=== PATIENT | male | born 1960 | race Caucasian/White ===

== ENCOUNTER 2016-08-03 08:41 | Emergency (ER) | payer OTHER ==
[~2016-08-03] VITALS: Ht 160 cm; Wt 57.0 kg
[2016-08-03 09:02] VITALS: Ht 160 cm; Wt 57.0 kg
[2016-08-03] MEDS ORDERED: KETOROLAC 60 MG INJ IM STA (09:17)
[2016-08-03 09:39] LABS: ADD UMIC NO; URINE BILIRUBIN (Dip) NEGATIVE (NEGATIVE); URINE BLOOD (Dip) NEGATIVE (NEGATIVE); URINE COLOR LT. YELLOW (YELLOW); URINE GLUCOSE (Dip) >=1000 % (NEGATIVE); URINE KETONES (Dip) 15 (NEGATIVE); URINE LEUKOCYTE ESTERASE (Dip) NEGATIVE (NEGATIVE); URINE NITRITE (Dip) NEGATIVE (NEGATIVE); URINE TOTAL PROTEIN (Dip) NEGATIVE (NEGATIVE); URINE UROBILINOGEN (Dip) 0.2 E.U./dL (0.1-1.0)
--- NOTE | 2016-08-03 10:24 | ERD ---
ER Documentation Chief Complaint Date/Time DATE: 08/03/16 TIME: 10:22 Chief Complaint RT LOWER BACK/FLANK PAIN RADIATING TO SIDE X2-3 WEEKS. WORSE TODAY. HPI 56-year-old male complaining of right flank pain 4 weeks. Pain was much worse for the last 2 weeks. Pain is constant, sharp and pulsing, radiating to the right pelvis. He could not sleep at night because of pain. He was seen at [facility] 2 weeks ago for the same pain, it was given ibuprofen and muscle relaxant. Patient stated the medication had not helped. History of diabetes, is taking Metformin 1000 mg daily. Denies fever or chills. Denies dysuria. Denies trauma or any other injuries. ROS All systems reviewed and are negative except as per history of present illness. Medications Home Meds Active Scripts Hydrocodone/Acetaminophen ([place] 5-325 Tablet) 1 Each Tablet, 1 TAB PO Q6H Y for SEVERE PAIN LEVEL 7-10, #7 TAB Prov:JACOB LIANG. EDUCATION DIAGNOSTICIAN 08/03/16 Ibuprofen* (Motrin*) 800 Mg Tab, 800 MG PO Q8 Y for PAIN AND OR ELEVATED TEMP, # 30 TAB Prov:JACOB LIANG. EDUCATION DIAGNOSTICIAN 08/03/16 Allergies Allergies: Coded Allergies: No Known Allergy (Unverified , 08/03/16) PMhx/Soc Medical and Surgical Hx: pt denies Medical Hx, pt denies Surgical Hx Hx Alcohol Use: No Hx Substance Use: No Hx Tobacco Use: No Smoking Status: Never smoker Physical Exam Vitals Vital Signs Date Time Temp Pulse Resp B/P Pulse Ox O2 Delivery O2 Flow Rate FiO2 08/03/16 09:02 98.4 98 20 142/95 98 Physical Exam General impression: Well-developed, well-nourished. Alert, oriented, in no acute distress Head: Normocephalic, atraumatic. Eyes: PERRL, EOM normal. Sclerae are normal. Conjunctiva not injected. Neck: Supple, nontender. No lymphadenopathy. No nuchal rigidity. Respiration: Normal respiratory effort. Lungs clear to auscultate bilaterally. No wheezes, rales or rhonchi. Cardiovascular: Regular rate and rhythm. No murmurs or extra heart sounds. Abdomen: Abdomen normal to inspection. Right flank and right pelvis tender. No masses or organomegaly. Bowel sounds normal. Back: Normal to inspection. No midline spine tenderness. Mild right CVA tenderness. Extremities: Extremities normal to inspection, nontender. ROM normal. Neuro: Mental status normal, speech normal. CLERICAL AND OFFICE SUPPORT WORKERS grossly intact. Skin: Normal turgor. No rash or lesions. Psych: Normal mood and affect. Result Diagram: 08/03/16 1030 08/03/16 1030 Results 24 hrs Laboratory Tests Test 08/03/16 09:24 08/03/16 10:30 Urine Color LT. YELLOW Urine Clarity CLEAR Urine pH 6.5 Urine Specific [place] 1.010 Urine Ketones 15 Urine Nitrite NEGATIVE Urine Bilirubin NEGATIVE Urine Urobilinogen 0.2 E.U./dL Urine Leukocyte Esterase NEGATIVE Urine Hemoglobin NEGATIVE Urine Glucose >=1000% Urine Total Protein NEGATIVE White Blood Count 5.410^3/ul Red Blood Count 5.5810^6/ul Hemoglobin 17.1g/dl Hematocrit 47.5% Mean Corpuscular Volume 85.1fl Mean Corpuscular Hemoglobin 30.6pg Mean Corpuscular Hemoglobin Concent 36.0g/dl Red Cell Distribution Width 11.1% Platelet Count 78273^3/UL Mean Platelet Volume 10.5fl Neutrophils % 60.4% Lymphocytes % 28.5% Monocytes % 8.0% Eosinophils % 2.2% Basophils % 0.7% Nucleated Red Blood Cells % 0.0/100WBC Neutrophils # 3.210^3/ul Lymphocytes # 1.510^3/ul Monocytes # 0.410^3/ul Eosinophils # 0.110^3/ul Basophils # 0.010^3/ul Nucleated Red Blood Cells # 0.010^3/ul Sodium Level 133mmol/L Potassium Level 4.0mmol/L Chloride Level 100mmol/L Carbon Dioxide Level 27mmol/L Anion Gap 10 Blood Urea Nitrogen 16mg/dl Creatinine 0.61mg/dl Glucose Level 310mg/dl Calcium Level 9.1mg/dl Total Bilirubin 0.6mg/dl Direct Bilirubin 0.00mg/dl Indirect Bilirubin 0.6mg/dl Aspartate Amino Transf (AST/SGOT) 20IU/L Alanine Aminotransferase (ALT/SGPT) 31IU/L Alkaline Phosphatase 103IU/L Total Protein 7.6g/dl Albumin 4.4g/dl Globulin 3.20g/dl Albumin/Globulin Ratio 1.37 Lipase 57U/L Current Medications Medications (Trade) Dose Ordered Sig/Marcelino Route PRN Reason Start Time Stop Time Status Last Admin Dose Admin Ketorolac Tromethamine (Toradol) 60 mg ONCE STAT IM 08/03/16 09:17 08/03/16 09:19 DC 08/03/16 09:31 PROCEDURE: US Retroperitoneum. CLINICAL INDICATION: Right flank pain. TECHNIQUE: Sonographic evaluation of the kidneys and bladder was performed using a curved array transducer. COMPARISON: None. FINDINGS: The right kidney measures 11.3 cm and the left kidney measures 11.6 cm in length. There is a small cyst identified in the right inferior pole measuring up to 8 mm. There is no hydronephrosis or nephrolithiasis. No focal renal mass is demonstrated. Partially distended urinary bladder is grossly unremarkable. There is enlarged prostate gland measuring up to 4 cm. IMPRESSION: No sonographic evidence of hydronephrosis, nephrolithiasis, or focal renal mass. Prostatomegaly. RPTAT: EE .Dilip Simmons MD, MD Date Time Electronically viewed and signed by .Dilip Simmons MD, on 08/03/2016 10:35 .C/ CC: JACOB LIANG NP PROCEDURE: CT abdomen and pelvis without contrast. CLINICAL INDICATION: Right flank pain TECHNIQUE: CT scan of the abdomen and pelvis without contrast was performed and is reconstructed at 2.5 mm contiguous axial intervals from the dome of the diaphragm to the inferior pubic rami.. The patient was scanned without intravenous contrast. Sagittal and coronal reformatted images were obtained from the axial source images. The calculated radiation dose measures 300 mGy centimeters. The CTDI measures 25 mGy. COMPARISON: None. FINDINGS: The lung bases are clear of any infiltrate or nodule. No effusion is seen. The liver is of normal size, contour and attenuation with no mass or ductal dilatation. No gallstones are visualized. No splenic, adrenal or pancreatic abnormalities present. Kidneys are of normal size and contour. No hydronephrosis or solid masses seen. 2 mm nonobstructing stone is seen in the upper pole of the right kidney. 5 mm cyst is seen in the right kidney. Ureters are of normal course and caliber with no stone. No bladder mass or stone is present. Prostate and seminal vesicles are normal. There is no aneurysm. No adenopathy is present. No bowel mass or obstruction is present. The appendix is normal. No phlegmon , ascites or pneumoperitoneum is visualized. The osseous structures are intact. IMPRESSION: No evidence of obstructive uropathy, diverticulitis or appendicitis. Tiny right renal calculus. Small right renal cyst. .Jaswinder Saldaña MD, MD Date Time Electronically viewed and signed by .Jaswinder Saldaña MD, on 08/03/2016 13: 27 .A/ CC: JACOB LIANG EDUCATION DIAGNOSTICIAN Procedures/MDM 56-year-old male presented ED was right flank pain and right pelvic pain. UA is negative for leukocyte, negative nitrite, negative hemoglobin. Greater than 1000% glucose is seen on UA. CBC, CMP, lipase are unremarkable except for blood glucose of 310. Renal ultrasound showed no hydronephrosis or focal renal mass. Prostatomegaly is seen on ultrasound. CT abdomen pelvis without IV contrast was obtained. CT showed 2 mm nonobstructing stone in the upper pole of the right kidney, a 5 mm cyst is also seen in the right kidney. CT otherwise normal. Patient was given Toradol in the ED. Patient reports pain slightly better after Toradol. Patient was informed of imaging and lab test results. I doubt pyelonephritis, acute appendicitis, cholecystitis, or other acute abdomen. Patient appears well, stable for discharge and outpatient management. Medical decision making shared with patient and family. Education provided to patient and family. Patient and family expressed understanding of the plan. Medications on discharge: Ibuprofen, Ashley. Follow-up: Primary care provider in 2-3 days or return to ED if worse. The case was reviewed and discussed with Dr. Kaplan, who agrees with the plan of care including labs, treatment, and advanced imaging as appropriate. Departure Diagnosis: Primary Impression: Kidney stone on right side Condition: Good JACOB LIANG NP Aug 03, 2016 10:24
--- NOTE | 2016-08-03 10:31 | RADRPT ---
PROCEDURE: US Retroperitoneum. CLINICAL INDICATION: Right flank pain. TECHNIQUE: Sonographic evaluation of the kidneys and bladder was performed using a curved array tr ansducer. COMPARISON: None. FINDINGS: The right kidney measures 11.3 cm and the left kidney measures 11.6 cm in length. There is a small cyst identified in the right inferior pole measuring up to 8 mm. There is no hydronephrosis or nephrolithiasis. No focal renal mass is demonstrated. Partially distended urinary bladder is grossly unremarkable. There is enlarged prostate gland measu ring up to 4 cm. IMPRESSION: No sonographic evidence of hydronephrosis, nephrolithiasis, or focal renal mass. Prostatomegaly. RPTAT: EE .Dilip Simmons MD, MD Date Time Electronically viewed and signed by .Dilip Simmons MD, on 08/03/2016 10:35 .C/
[2016-08-03 10:45] LABS: ADD SCAN DIFF NO
[2016-08-03 10:49] LABS: BASOPHILS % 0.7 % (0.0-2.0); EOSINOPHILS # 0.1 10^3/ul (0.0-0.5); EOSINOPHILS % 2.2 % (0.0-7.0); HEMATOCRIT 47.5 % (42.0-52.0); HEMOGLOBIN 17.1 g/dl (14.0-18.0); LYMPHOCYTES # 1.5 10^3/ul (0.8-2.9); LYMPHOCYTES % 28.5 % (15.0-51.0); MEAN CORPUSCULAR HEMOGLOBIN 30.6 pg (29.0-33.0); MEAN CORPUSCULAR VOLUME 85.1 fl (82.0-101.0); MEAN PLATELET VOLUME 10.5 fl (7.4-10.4); MONOCYTE # 0.4 10^3/ul (0.3-0.9); NEUTROPHIL # 3.2 10^3/ul (1.6-7.5); NEUTROPHILS % 60.4 % (39.0-77.0); PLATELET COUNT 193 10^3/UL (140-415); RED BLOOD COUNT 5.58 10^6/ul (4.70-6.10); RED CELL DISTRIBUTION WIDTH 11.1 % (11.5-14.5); WHITE BLOOD COUNT 5.4 10^3/ul (4.8-10.8)
[2016-08-03 11:00] LABS: ALBUMIN 4.4 g/dl (3.3-4.9); ALBUMIN/GLOBULIN RATIO 1.37; BILIRUBIN,INDIRECT 0.6 mg/dl (0-1.1); BILIRUBIN,TOTAL 0.6 mg/dl (0.2-1.3); CALCIUM 9.1 mg/dl (8.4-10.2); CREATININE 0.61 mg/dl (0.61-1.24); TOTAL PROTEIN 7.6 g/dl (6.1-8.1)
--- NOTE | 2016-08-03 13:27 | RADRPT ---
PROCEDURE: CT abdomen and pelvis without contrast. CLINICAL INDICATION: Right flank pain TECHNIQUE: CT scan of the abdomen and pelvis without contrast was performed and is reconstructed a t 2.5 mm contiguous axial intervals from the dome of the diaphragm to the inferior pubic rami.. The patient was scanned without intravenous contrast. Sagittal and coronal reformatted images were obt ained from the axial source images. The calculated radiation dose measures 300 mGy centimeters. The CTDI measures 25 mGy. COMPARISON: None. FINDINGS: The lung bases are clear of any infiltrate or nodule. No effusion is seen. The liver is of normal size, contour and attenuation with no mass or ductal dilatation. No gallston es are visualized. No splenic, adrenal or pancreatic abnormalities present. Kidneys are of normal size and contour. No hydronephrosis or solid masses seen. 2 mm nonobstructin g stone is seen in the upper pole of the right kidney. 5 mm cyst is seen in the right kidney. Uret ers are of normal course and caliber with no stone. No bladder mass or stone is present. Prostate a nd seminal vesicles are normal. There is no aneurysm. No adenopathy is present. No bowel mass or obstruction is present. The appendix is normal. No phlegmon, ascites or pneumop eritoneum is visualized. The osseous structures are intact. IMPRESSION: No evidence of obstructive uropathy, diverticulitis or appendicitis. Tiny right renal calculus. Small right renal cyst. .Jaswinder Saldaña MD, Date Time Electronically viewed and signed by .Jaswinder Saldaña MD, MD on 08/03/2016 13:27 .A/
[2016-08-03] MEDS ORDERED: IBUP800T25 PO (14:17)
[2016-08-03] MEDS ORDERED: HYDR-906 PO (14:17)
== END 2016-08-03 14:26 | disposition home or self-care (01) ==
LOC: FTE 08:41
DX: N20.0 Calculus of kidney (principal)
CPT/HCPCS: 36415; 74176; 76775; 80053; 81003; 83690; 85025; 96372; 99285; J1885

== ENCOUNTER 2016-10-09 11:12 | Emergency (ER) | payer OTHER ==
[~2016-10-09] VITALS: Ht 152.4 cm; Wt 58.0 kg
[~2016-10-09 11:12] MED LIST: HYDR-906 PO; IBUP800T25 PO
[2016-10-09 11:15] VITALS: Ht 152.4 cm; Wt 58.0 kg
[2016-10-09] MEDS ORDERED: KETOROLAC 30 MG INJ IM STA (12:22)
[2016-10-09] MEDS ORDERED: TRAM50TA2 PO (12:23)
[2016-10-09] MEDS ORDERED: NAPR-260 PO (12:25)
[2016-10-09 12:33] VITALS: BP 116/75; PULSE 89; RESP 19; TEMP 98.1
--- NOTE | 2016-10-09 12:39 | ERD ---
ER Documentation Chief Complaint Date/Time DATE: 10/09/16 TIME: 12:35 Chief Complaint Complains of back pain x 3 days HPI Patient is a 56-year-old male with a past medical history of diabetes who presents to the ED with back pain 2 months. He states that his pain comes and goes. He states that he was here 2 months ago and was diagnosed with a kidney stone. He states his pain is gotten worse in the last couple of days. He did not states that it radiates slightly to his right pelvis. He states that he has difficulty sleeping at night. He has taken ibuprofen but has not taken any recent pain medications for his symptoms. He states that he went to his primary care and has a referral to see the urologist in 1 month. He denies fever or chills. Denies dysuria. Denies trauma or injuries. Denies leg pain. Denies chest pain or cough or shortness of breath. Denies headache or dizziness. Denies polyuria, polyphagia, polydipsia. Patient states that he would like to do have a surgery here in the ED. States that he does not want to wait until his urology appointment. ROS All systems reviewed and are negative except as per history of present illness. Medications Home Meds Active Scripts Naproxen* (Naprosyn*) 500 Mg Tablet, 500 MG PO BID Y for PAIN AND/OR INFLAMMATION, #30 TAB Prov:MO SMITH PA-C 10/09/16 Tramadol HCl (Tramadol HCl) 50 Mg Tablet, 50 MG PO Q6 Y for PAIN, #20 TAB Prov:MO SMITH PA-C 10/09/16 Hydrocodone/Acetaminophen ([place] 5-325 Tablet) 1 Each Tablet, 1 TAB PO Q6H Y for SEVERE PAIN LEVEL 7-10, #7 TAB Prov:JACOB LIANG. SPECIAL EDUCATION RESOURCE TEACHER 08/03/16 Ibuprofen* (Motrin*) 800 Mg Tab, 800 MG PO Q8 Y for PAIN AND OR ELEVATED TEMP, # 30 TAB Prov:JACOB LIANG. SPECIAL EDUCATION RESOURCE TEACHER 08/03/16 Allergies Allergies: Coded Allergies: No Known Allergy (Unverified , 08/03/16) PMhx/Soc Medical and Surgical Hx: pt denies Surgical Hx History of Surgery: No Anesthesia Reaction: No Hx Neurological Disorder: No Hx Respiratory Disorders: No Hx Cardiac Disorders: No Hx Psychiatric Problems: No Hx Miscellaneous Medical Probl: Yes (DM) Hx Alcohol Use: No Hx Substance Use: No Hx Tobacco Use: No Smoking Status: Never smoker FmHx Family History: No coronary disease, No diabetes, No other Physical Exam Vitals Vital Signs Date Time Temp Pulse Resp B/P Pulse Ox O2 Delivery O2 Flow Rate FiO2 10/09/16 12:33 98.1 89 19 116/75 100 Room Air 10/09/16 11:15 97.0 103 20 114/78 99 Physical Exam GENERAL: Well-developed, well-nourished male. Appears in no acute distress. HEAD: Normocephalic, atraumatic. EYES: Pupils are equally reactive bilaterally. EOMs grossly intact. No conjunctival erythema. ENT: Moist mucous membranes. No uvula deviation. No kissing tonsils. No exudates. NECK: Supple. No lymphadenopathy or thyromegaly. No meningismus. negative kernig. negative brudinski. LUNG: Clear to auscultation bilaterally. No rhonchi, wheezing, rales or coarse breath sounds. HEART: Regular rate and rhythm. No murmurs, rubs or gallops. ABDOMEN: No scars, ecchymosis or rashes noted. Soft, nontender, and nondistended. Positive bowel sounds in all four quadrants. No rebound tenderness , no guarding. (-) McBurneys point tenderness. Slight tenderness to the right CVA. Negative straight leg test. BACK: No midline tenderness. Extremities: Equal pulses bilaterally. No peripheral clubbing, cyanosis or edema. No unilateral leg swelling. NEUROLOGIC: Alert and oriented. Moving all four extremities. 5/5 strength in all extremities. Normal speech. Steady gait. SKIN: Normal color. Warm and dry. No rashes or lesions. Capillary refill < 2 seconds Results 24 hrs Current Medications Medications (Trade) Dose Ordered Sig/Marcelino Route PRN Reason Start Time Stop Time Status Last Admin Dose Admin Ketorolac Tromethamine (Toradol) 30 mg ONCE STAT IM 10/09/16 12:22 10/09/16 12:23 DC 10/09/16 12:27 Procedures/MDM ER COURSE: I kept the patient and/or family informed of laboratory and diagnostic imaging results throughout the emergency room course. MEDICAL DECISION MAKING: This is a 56-year-old male who presents with right back pain on and off 3months. Vital signs were reviewed. Patient is afebrile. Patient is not hypoxic. Patient is not toxic or ill-appearing. I consulted with my supervising physician Dr. Kaplan who reviewed his prior CT scan. At this point no CT scan or further imaging and blood work is necessary. Patient's 2 mm obstructing stone from his last CT scan was in the renal which is unlikely related to his pain. At this point patient likely has muscle strain versus muscle sprain versus nerve injury. Patient should follow-up with his primary care provider for further evaluation such as MRI. Patient pulse of 103 is likely related to pain. Patient does not have signs of dysuria or fever and I have low suspicion for obstructed or septic stone. Low suspicion for cauda equine syndrome, spinal epidural hematoma, spinal epidural abscess, osteomyelitis, fracture, aortic dissection, AAA, pyelonephritis, nephrolithiasis , septic stone, obstructed stone. Patient did not have spinal or paraspinal tenderness and I have low suspicion for fracture dislocation or compression fracture. Plan was discussed with patient using nurse a smearer. DISCHARGE: At this time, patient is stable for discharge and outpatient management with no new complaints during the ER course. Patient was sent home with Naprosyn and tramadol and to follow-up with his primary care provider and his appointment with the urologist as scheduled. Patient will be discharged home with instructions to recheck for new or worsening symptoms such as fever, nausea, weakness, LOC and to follow up with primary care in the next 1-2 days. Patient was advised to return to the ER for any new or worsening symptoms. Plan was discussed and patient and/or family understands and agrees. Home instructions were given. Departure Diagnosis: Primary Impression: Back pain Back pain location: low back pain Chronicity: chronic Back pain laterality : right Sciatica presence: unspecified whether sciatica present Qualified Code: M54.5 - Chronic right-sided low back pain, with sciatica presence unspecified Condition: Stable Patient Instructions: Back Pain (Acute Or Chronic) [facility] Usted se aranda hecho un examen mdico de control que le indica que no est en sarah condicin que requiera tratamiento urgente en el Departamento de Emergencia. Un estudio ms profundo y el tratamiento de chun condicin pueden esperar sin ningn riesgo hasta que usted sea atendida/o en el consultorio de chun mdico o sarah cl mello. Es responsabilidad suya arreglar sarah karen para el seguimiento del meche. MANEJO DE CONDICIONES NO URGENTES EN EL FUTURO 1) Si usted tiene un mdico de atencin primaria: Usted debera llamar a chun mdico de atencin primaria antes de venir al departamento de emergencia. Despus de las horas de consultorio, chun doctor o chun asociado/a est disponible por telfono. El mdico o enfermero de rico en el servicio telefnico puede asesorarle por elver medio para atender el problema, o meche contrario se puede programar sarah karen. 2) Si usted no tiene un mdico de atencin primaria: Llame al mdico o clnica de referencia que aparece abajo yuan las horas de consultorio para hacer sarah karen para que le vean. CLINICAS: [place] [id number] [phone] [facility] [phone] [facility] [phone] [facility]. [place] [id number] [phone] [facility] [place] [id number] [phone] [facility]. [phone] [address] Additional Instructions: Llame al doctor MAANA y eliel sarah KAREN PARA DENTRO DE 1-2 GUIRDY.Dgale a la secretaria que nosotros le instruimos hacer esta karen.Avise o llame si chun condicin se empeora antes de la karen. Regresa aqui si peor o no mejor. MO SMITH PA-C Oct 09, 2016 12:39
== END 2016-10-09 12:37 | disposition home or self-care (01) ==
LOC: FTE 11:12
DX: M54.5 Low back pain (principal); E11.9 Type 2 diabetes mellitus without complications
CPT/HCPCS: 96372; 99284; J1885

== ENCOUNTER 2017-11-12 12:03 | Day surgery (SDC) | END 2017-11-12 17:33 | disposition home or self-care (01) ==